=== PATIENT | male | born 1995 | race Caucasian/White ===

== ENCOUNTER → 2020-01-03 | Outpatient (CLI) | payer BC, OTHER ==
--- NOTE | 2020-01-03 15:59 | KCIC ---
STUDY: MRI of the left knee without contrast INDICATION: Left knee pain. Prior ACL repair. COMPARISON: 04/19/2016 TECHNIQUE: Multiplanar MR imaging of the left knee performed without the use of intravenous or intra-articular contrast. FINDINGS: Menisci: Abnormal morphology of the lateral meniscus anterior body/horn junction through much of the body segment in the setting of a tear at this location on the comparison. No evidence for a more acute lateral meniscal injury. Sequela of prior tearing at the posterior body and posterior horn of the medial meniscus. Newly seen small free edge tear at the posterior body/horn junction, image 13 series 8. Cruciate ligaments: Status post ACL reconstruction. The graft is intact but is slightly flattened against the anterior margin of the intercondylar notch, image 13 series 5. The PCL is intact. Collateral ligaments: No acute injury. Tendons: No acute injury or significant tendinosis. Cartilage: Patellofemoral: No high-grade chondral defect. Lateral compartment: Partial thickness chondrosis at the weightbearing aspect. Medial compartment: Partial thickness chondrosis at the periphery of the weightbearing aspect with faint subchondral marrow edema. Bones: No acute fracture or locally aggressive marrow signal abnormality. Miscellaneous: No significant knee joint effusion scarring of Hoffa's fat. IMPRESSION: 1. Sequela of medial and lateral meniscal repair/debridement. Some areas with decreased meniscal volume from the prior most likely relate to a combination of debridement and expected meniscal degeneration. No newly seen tear of the lateral meniscus. A free edge tear at the medial meniscus posterior body/horn junction is new from the comparison (image 20 series 5 and image 13 series 8). 2. Status post ACL reconstruction. The graft is intact. Slightly flattened morphology of the ACL which contours the anterior surface of the intercondylar notch. The [place] PCL is intact. No acute collateral ligament or tendon injury. 3. Partial thickness chondrosis at the weightbearing aspect of the lateral compartment and at the periphery of the weightbearing medial compartment. Faint subchondral marrow edema at the far edge of the medial compartment. Electronically signed by: SAYDA PARIS MD (01/03/2020 3:56 PM) [id number]
== END ==
LOC: KCIC MRI 13:29
PROVIDERS: ATTEND Orthopaedic Surgery
DX: M25.462 Effusion, left knee (principal); Z96.652 Presence of left artificial knee joint
CPT/HCPCS: 73721